=== PATIENT | female | born 1980 | race Caucasian/White ===

== ENCOUNTER 2021-12-07 18:17 | Inpatient (IN) | payer MEDICAID ==
[2021-12-07] MEDS ORDERED: HALOPERIDOL LACTATE 5 MG/ML 1 ML VIAL IM PRN (18:21)
[2021-12-07] MEDS ORDERED: FLUTICASONE 50MCG/SPRAY NASAL 16GM EA NOSTRIL PRN (18:21)
[2021-12-07] MEDS ORDERED: LORazepam 1 MG TAB PO PRN (18:21)
[2021-12-07] MEDS ORDERED: LORATADINE 10 MG TAB PO PRN (18:21)
[2021-12-07] MEDS ORDERED: haloperidoL 5 MG TAB PO PRN (18:21)
[2021-12-07] MEDS ORDERED: MAG HYDROX/AL HYDROX/SIMETH 30 ML CUP PO PRN (18:21)
[2021-12-07] MEDS ORDERED: IBUPROFEN 400 MG TAB PO PRN (18:21)
[2021-12-07] MEDS ORDERED: BENZOCAINE/MENTHOL LOZENG 1 EACH LOZENGE MUCOUS MEM PRN (18:21)
[2021-12-07] MEDS ORDERED: LORazepam 2 MG/ML INJ IM PRN (18:21)
[2021-12-07] MEDS ORDERED: MAGNESIUM HYDROXIDE 2,400 MG/10 ML CUP PO PRN (18:21)
[2021-12-08] MEDS: SYMBICORT 80-4.5 MCG INHALER INHALATION SCH ×4 (03:34→21:18)
[2021-12-08] MEDS: IPRATROPIUM-ALBUTEROL 3 ML NEB INHALATION PRN ×4 (03:40→16:33)
[2021-12-08] MEDS: MONTELUKAST 10 MG TAB PO SCH ×2 (03:44→21:19)
--- NOTE | 2021-12-08 10:15 | XR ---
EXAMINATION TYPE: XR chest 2V DATE OF EXAM: 12/08/2021 10:07 AM COMPARISON: None TECHNIQUE: XR chest 2V Frontal and lateral views of the chest. CLINICAL INDICATION:Female, 41 years old with history of difficulty Breathing'; FINDINGS: Lungs/Pleura: There is flattening of the diaphragm with increased lucency of the lungs. No evidence o f pneumothorax, pleural effusion or focal consolidation. Pulmonary vascularity: Unremarkable. Heart/mediastinum: Cardiomediastinal silhouette is unremarkable. Musculoskeletal: No acute osseous pathology. IMPRESSION: 1. No acute cardiopulmonary disease process. 2. Flattening of the diaphragm suggestive of COPD changes.
[2021-12-08] MEDS: PANTOPRAZOLE 40 MG TABLET PO SCH (11:22)
[2021-12-08] MEDS: LISINOPRIL-HCTZ 20-12.5 MG 1 EACH TAB PO SCH (11:22)
[2021-12-08] MEDS: ATORVASTATIN 20 MG TAB PO SCH (11:22)
[2021-12-08] MEDS: NICOTINE 14MG/24HR PATCH TRANSDERM SCH (11:30)
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
[2021-12-08] MEDS: LEVOTHYROXINE 100 MCG TAB PO SCH (16:11)
[2021-12-08] MEDS: GABAPENTIN 300 MG CAP PO SCH ×2 (16:12→21:20)
[2021-12-08] MEDS: buPROPion XL 150 MG TAB.ER.24H PO SCH (16:12)
[2021-12-08] MEDS: ESCITALOPRAM 10 MG TAB PO SCH (16:12)
[2021-12-08] MEDS: ACETAMINOPHEN TAB 325 MG TAB PO PRN (16:28)
[2021-12-08] MEDS: FAMOTIDINE 20 MG TAB PO SCH (21:19)
[2021-12-08] MEDS: PRAZOSIN 1 MG CAP PO SCH (21:19)
[2021-12-08] MEDS: CYCLOBENZAPRINE 10 MG TAB PO SCH (21:19)
[2021-12-08] MEDS ORDERED: ALBUTEROL HFA INHALER INHALATION PRN (22:51)
--- NOTE | 2021-12-08 23:12 | P.MDCNMH ---
History of Present Illness H&P Date: 12/08/21 Chief Complaint: medical evaluation 41 year old female with bipolar disorder, hypothyroid , hpyertension patient was admitted to the ICU at [facility], for Trazodone overdose, which was intentional suicidal attempt. patient was intubated on 12/04 and extubated 12/05 currently admitted to the mental health unit, she has concerns regarding a erythematus patch over her left forearm that she reports is painful and gets more pronounced when she keeps her arm down . this along couple areas of bruising around that erythematus patch, she reports that an IV was inserted around that area. she also reports swelling after an IV line insertion near her wrist over the right hand, which has now resolved otherwise denies any other active medical concerns, no fever, chills, chest pain or trouble breathing, no abd pain nausea or vomiting, denies hearing voices or hallucinations. she denies any active suicidal ideation at this time, but admits to three failed attempts in the past, all involved drug overdose. Review of Systems Pertinent positives as noted in HPI. All other systems were reviewed and are negative Past Medical History Past Medical History: Asthma, Cancer, Fibromyalgia Additional Past Medical History / Comment(s): Cervical, back and hip nerve pain. History of Any Multi-Drug Resistant Organisms: None Reported Past Surgical History: Tubal Ligation Additional Past Surgical History / Comment(s): Cancerous cells removed from cervix, 2011. Past Anesthesia/Blood Transfusion Reactions: No Reported Reaction Past Psychological History: Anxiety, Bipolar, Depression Smoking Status: Never smoker Past Alcohol Use History: Occasional Past Drug Use History: None Reported - Past Family History Mother Additional Family Medical History / Comment(s): MS, lung CA, hypothyroidism. Medications and Allergies Home Medications Medication Instructions Recorded Confirmed Type ARIPiprazole [Abilify] 2 mg PO DAILY 03/07/14 03/08/14 History DULoxetine HCL [Cymbalta] 60 mg PO DAILY 03/07/14 03/08/14 History Gabapentin [Neurontin] 300 mg PO TID 03/07/14 03/08/14 History Ibuprofen [Motrin] 800 mg PO Q8HR PRN 03/07/14 03/08/14 History Levothyroxine Sodium [Synthroid] 100 mcg PO DAILY 03/07/14 03/08/14 History Temazepam [Restoril] 30 mg PO HS PRN 03/07/14 03/07/14 History Buprenorphine HCl/Naloxone HCl 8 film PO BID PRN 03/08/14 03/08/14 History [Suboxone 8 mg-2 mg Sl Film] ARIPiprazole [Abilify] 5 mg PO DAILY 30 Days tab 03/15/14 Rx Atorvastatin Calcium [Lipitor] 40 mg PO DAILY 30 Days tablet 03/15/14 Rx Cyclobenzaprine [Flexeril] 10 mg PO HS 30 Days tab 03/15/14 Rx Escitalopram [Lexapro] 10 mg PO DAILY 30 Days tab 03/15/14 Rx Famotidine [Pepcid] 20 mg PO BID 30 Days tab 03/15/14 Rx Gabapentin [Neurontin] 600 mg PO TID 30 Days cap 03/15/14 Rx Mupirocin 2% Oint [Bactroban 2% 1 applic TOPICAL TID 14 Days 03/15/14 Rx Oint] applic calcium polycarbophiL [Fibercon] 625 mg PO BID 30 Days tablet 03/15/14 Rx hydrOXYzine HCL [Atarax] 50 mg PO TID 30 Days tab 03/15/14 Rx traZODone HCL [Desyrel] 100 mg PO HS PRN 30 Days tab 03/15/14 Rx Allergies Allergy/AdvReac Type Severity Reaction Status Date / Time Antihistamines - Alkylamine Allergy Unknown Verified 03/08/14 14:58 Penicillins Allergy Unknown Verified 03/08/14 14:58 Physical Exam Vitals: Vital Signs Temp Pulse Pulse Resp BP BP Pulse Ox 12/08/21 16:46 85 12/08/21 16:34 100 12/08/21 12:53 80 12/08/21 12:42 76 12/08/21 11:31 83 120/71 12/08/21 09:52 82 12/08/21 09:38 75 12/08/21 08:45 93 L 12/08/21 03:50 94 12/08/21 03:41 92 12/08/21 03:19 97.8 F 93 18 128/72 93 L Intake and Output 12/08/21 12/08/21 12/08/21 06:59 14:59 22:59 Other: Weight 74.134 kg Constitutional: No acute distress, conversant, pleasant Eyes: Anicteric sclerae, moist conjunctiva, Pupils equal round reactive to light ENMT: NC/AT Oropharynx clear, no erythema, or exudates Neck: Supple, no masses, or JVD No carotid bruits No thyromegaly Lungs: Clear to auscultation Clear to percussion Normal respiratory effort, no accessory muscle use Cardiovascular: Heart regular in rate and rhythm, No murmurs, gallops, or rubs No peripheral edema Abdominal: Soft Nontender, no guarding, rebound or rigidity Abdomen moving with respiration Normoactive bowel sounds No hepatomegaly, No splenomegaly No palpable mass No abdominal wall hernia noted Skin: erythematus patch over the ventral aspect of the left forearm measuring 5X5 tender to palpation , no induration , slightly warm to the touch , with couple areas of surrounding echymosis . otherwise, Normal temperature, tone, texture, turgor No induration No subcutaneous nodules No rash, lesions No ulcers Extremities: No digital cyanosis No clubbing Pedal pulses intact and symmetrical Radial pulses intact and symmetrical No calf tenderness Psychiatric: Alert and oriented to person, place and time Neuro Muscles Strength 5/5 in all 4 extremities Sensation to light touch grossly present throughout Cranial nerves II-XII grossly intact No focal sensory deficits Lymphatics: no palpable cervical or supraclavicular , or inguinal lymph nodes Cranial Nerve Examination - Cranial Nerves Cranial Nerve II- Optic: Intact Cranial Nerve III- Oculomotor: Intact Cranial Nerve IV- Trochlear: Intact Cranial Nerve V- Trigeminal: Intact Cranial Nerve - Abducens: Intact Cranial Nerve VII- Facial: Intact Cranial Nerve VIII- Auditory: Intact Cranial Nerve IX- Glossopharyngeal: Intact Cranial Nerve X- Vagus: Intact Cranial Nerve XI- Accessory: Intact Cranial Nerve XII- Hypoglossal: Intact Assessment and Plan Assessment: bipolar disorder suicidal attempt by drug over dose management per psych IV site extravasation over left forearm , no evidence of phlebitis elevation of the limb declined NSAIDS warm compress area was marked with pen , will follow up if it gets worse, chronic medical conditions Asthma , moderate persistent inhalers PRN as needed symbicort BID hypertension , resume home BP meds lisinopril , BP controlled hypothyroid, resume levothyroxine follow up morning labs Thank you for allowing us to participate in the care of this patient. We will follow peripherally. Do not hesitate to contact us with questions. Someone can be reached from the [facility] hospitalist group at all hours of the day at [phone].
[2021-12-09] MEDS: LEVOTHYROXINE 100 MCG TAB PO SCH (06:29)
[2021-12-09 08:43] LABS: Anisocytosis Slight; HCT 35.9 % (34.0-46.0); HGB 11.3 gm/dL (11.4-16.0); MCH 25.2 pg (25.0-35.0); MCHC 31.4 g/dL (31.0-37.0); MCV 80.3 fL (80.0-100.0); Mean Platelet Volume 7.6; Platelet Count 395 k/uL (150-450); RBC 4.47 m/uL (3.80-5.40); RDW 16.1 % (11.5-15.5); WBC 9.5 k/uL (3.8-10.6)
[2021-12-09 08:46] LABS: ALT 19 U/L (4-34); AST 29 U/L (14-36); African American GFR (CKD) >90 (>60 ml/min/1.73 sqM); Albumin 4.2 g/dL (3.5-5.0); Alkaline Phosphatase 73 U/L (38-126); Anion Gap 10 mmol/L; Blood Urea Nitrogen 10 mg/dL (7-17); Calcium 9.4 mg/dL (8.4-10.2); Carbon Dioxide 24 mmol/L (22-30); Chloride 100 mmol/L (98-107); Glucose 97 mg/dL (74-99); Non-African American GFR(CKD) 85 (>60 ml/min/1.73 sqM); Sodium 134 mmol/L (137-145); Total Bilirubin 0.4 mg/dL (0.2-1.3); Total Protein 7.2 g/dL (6.3-8.2)
[2021-12-09] MEDS: SYMBICORT 80-4.5 MCG INHALER INHALATION SCH ×2 (09:04→22:17)
[2021-12-09] MEDS: NICOTINE 14MG/24HR PATCH TRANSDERM SCH (09:05)
[2021-12-09] MEDS: ESCITALOPRAM 10 MG TAB PO SCH (09:07)
[2021-12-09] MEDS: FAMOTIDINE 20 MG TAB PO SCH ×2 (09:08→20:36)
[2021-12-09] MEDS: GABAPENTIN 300 MG CAP PO SCH ×3 (09:08→20:37)
[2021-12-09] MEDS: ATORVASTATIN 20 MG TAB PO SCH (09:08)
[2021-12-09] MEDS: buPROPion XL 150 MG TAB.ER.24H PO SCH (09:08)
[2021-12-09] MEDS: LISINOPRIL-HCTZ 20-12.5 MG 1 EACH TAB PO SCH (09:08)
[2021-12-09] MEDS: PANTOPRAZOLE 40 MG TABLET PO SCH (09:08)
[2021-12-09] MEDS: IPRATROPIUM-ALBUTEROL 3 ML NEB INHALATION PRN ×2 (15:45→21:31)
[2021-12-09] MEDS: CYCLOBENZAPRINE 10 MG TAB PO SCH (20:36)
[2021-12-09] MEDS: MONTELUKAST 10 MG TAB PO SCH (20:37)
[2021-12-09] MEDS: PRAZOSIN 1 MG CAP PO SCH (20:37)
--- NOTE | 2021-12-09 20:52 | P.PN ---
Progress Note - Text Progress Note Date: 12/09/21 Interval History: Patient was seen in her room and was agreeable to speak with mortgage underwriter. At this time patient denies any suicidal or homicidal ideations, intent or plan. Patient denies any auditory, visual hallucinations and denies any paranoia or delusions. Patient denies any side effects from the medications and has been compliant with meds. She denies nightmares last night, reports mood is better today, has talked to her . She asks about her Lyrica multiple times for her fibromyalgia. I reviewed her chart and she is getting gabapentin 600 mg TID as well as Flexeril 10 mg QHS. Mental Status Exam: General Appearance: Patient appears to be stated age, dress in casual attire, area of previous IV site marked in ink by medical doctor due to inflammation. Behavior: Patient is calm without any agitated behavior. Speech: Patient's speech is fluent and non-pressured. Mood/Affect: Mood is improving mildly, affect is congruent and constricted. Suicidality/Homicidality: Patient denies having any suicidal or homicidal ideation intent or plan. Perceptions: Patient denies any visual hallucinations and denies any auditory hallucinations. Though content/process: There is no evidence of any delusional thought content and thought process is linear and goal-directed. Memory and concentration: AOX3, grossly intact for the purposes of this session Judgment and insight: Improving mildly Assessment MDD, without psychotic features PTSD Overdose on medications Plan: -Patient continues to meet criteria for inpatient psychiatric admission for symptom stabilization and safety. -Medications: Continue Lexapro 10 mg daily for depression/anxiety. Continue Wellbutrin XL 150 mg daily for depression. Continue Prazosin 1 mg daily for nightmares. -When necessary Ativan and Haldol for agitation/aggression. Encouraged the patient to participate in milieu.
[2021-12-09 21:34] VITALS: RESP 18
[2021-12-10] MEDS: ACETAMINOPHEN TAB 325 MG TAB PO PRN (02:53)
[2021-12-10] MEDS: IPRATROPIUM-ALBUTEROL 3 ML NEB INHALATION PRN ×4 (07:31→19:28)
[2021-12-10] MEDS: ESCITALOPRAM 10 MG TAB PO SCH (08:04)
[2021-12-10] MEDS: buPROPion XL 150 MG TAB.ER.24H PO SCH (08:04)
[2021-12-10] MEDS: ATORVASTATIN 20 MG TAB PO SCH (08:04)
[2021-12-10] MEDS: GABAPENTIN 300 MG CAP PO SCH ×3 (08:04→20:32)
[2021-12-10] MEDS: LEVOTHYROXINE 100 MCG TAB PO SCH (08:04)
[2021-12-10] MEDS: FAMOTIDINE 20 MG TAB PO SCH ×2 (08:04→20:32)
[2021-12-10] MEDS: PANTOPRAZOLE 40 MG TABLET PO SCH (08:04)
[2021-12-10] MEDS: NICOTINE 14MG/24HR PATCH TRANSDERM SCH (08:05)
[2021-12-10] MEDS: SYMBICORT 80-4.5 MCG INHALER INHALATION SCH ×2 (08:05→21:02)
[2021-12-10] MEDS: LISINOPRIL-HCTZ 20-12.5 MG 1 EACH TAB PO SCH (08:54)
[2021-12-10 13:17] LABS: Chol/HDL Ratio 2.39 Ratio; LDL Cholesterol,Calculated 91.8 mg/dL (0.0-131.0); VLDL Calculation 17.08 mg/dL (5.00-40.00)
--- NOTE | 2021-12-10 14:11 | P.PN ---
Progress Note - Text Progress Note Date: 12/10/21 Interval History: Patient was seen in her room and was agreeable to speak with assembly instructions writer. She reports good mood, sleep and appetite. She denies nightmares last night. She reports she was switched to Gabapentin from Lyrica on the medical floor and does not find the gabapentin, would like to switch back to Lyrica, and will defer this to the primary team. At this time patient denies any suicidal or homicidal ideations, intent or plan. Patient denies any auditory, visual hallucinations and denies any paranoia or delusions. Patient denies any side effects from the medications and has been compliant with meds. Mental Status Exam: General Appearance: Patient appears to be stated age, dressed in casual attire, area of previous IV with inflammation and bruising that appears to be improving. . Behavior: Patient is calm without any agitated behavior. Speech: Patient's speech is fluent and non-pressured. Mood/Affect: Mood is "good", affect is congruent and constricted. Suicidality/Homicidality: Patient denies having any suicidal or homicidal ideation intent or plan. Perceptions: Patient denies any visual hallucinations and denies any auditory hallucinations. Though content/process: There is no evidence of any delusional thought content and thought process is linear and goal-directed. Memory and concentration: AOX3, grossly intact for the purposes of this session Judgment and insight: Improving mildly Assessment MDD, without psychotic features PTSD Overdose on medications Plan: -Patient continues to meet criteria for inpatient psychiatric admission for symptom stabilization and safety. -Medications: Continue Lexapro 10 mg daily for depression/anxiety. Continue Wellbutrin XL 150 mg daily for depression. Continue Prazosin 1 mg daily for nightmares. Defer decision to change Gabapentin back to Lyrica to primary team. -When necessary Ativan and Haldol for agitation/aggression. Encouraged the patient to participate in milieu.
[2021-12-10] MEDS: CYCLOBENZAPRINE 10 MG TAB PO SCH (20:32)
[2021-12-10] MEDS: MONTELUKAST 10 MG TAB PO SCH (20:32)
[2021-12-10] MEDS: PRAZOSIN 1 MG CAP PO SCH (20:32)
[2021-12-11] MEDS: LEVOTHYROXINE 100 MCG TAB PO SCH (06:11)
[2021-12-11 06:56] VITALS: TEMP 98.1
[2021-12-11] MEDS: IPRATROPIUM-ALBUTEROL 3 ML NEB INHALATION PRN ×3 (07:07→19:13)
[2021-12-11] MEDS: ATORVASTATIN 20 MG TAB PO SCH (08:38)
[2021-12-11] MEDS: PANTOPRAZOLE 40 MG TABLET PO SCH (08:38)
[2021-12-11] MEDS: ESCITALOPRAM 10 MG TAB PO SCH (08:39)
[2021-12-11] MEDS: FAMOTIDINE 20 MG TAB PO SCH ×2 (08:39→21:04)
[2021-12-11] MEDS: GABAPENTIN 300 MG CAP PO SCH ×3 (08:39→21:04)
[2021-12-11] MEDS: buPROPion XL 150 MG TAB.ER.24H PO SCH (08:39)
[2021-12-11] MEDS: NICOTINE 14MG/24HR PATCH TRANSDERM SCH (08:40)
[2021-12-11] MEDS: LISINOPRIL-HCTZ 20-12.5 MG 1 EACH TAB PO SCH (08:40)
[2021-12-11 08:42] VITALS: BP 112/69
[2021-12-11] MEDS: SYMBICORT 80-4.5 MCG INHALER INHALATION SCH ×2 (08:52→19:13)
[2021-12-11] MEDS: ACETAMINOPHEN TAB 325 MG TAB PO PRN (12:08)
--- NOTE | 2021-12-11 13:05 | P.PN ---
Progress Note - Text Progress Note Date: 12/11/21 Interval History: Patient was seen lying in her bed today and was directable and agreeable to cleo sheppard with typewriter repairer in the office. Patient claims that she feels upset that covid has been spreading and states that shes never been exposed before. She claims that her irritability and impulsivity and improving. She states that her mood and anxiety also been gradual improvement I'll however she states that she does feel anxious today. She claims she is looking forward to being discharged soon. She states that she has been participating in groups when she can. She claims that she has been showering and sleeping fairly except for last night where she was not able to sleep. She claims that she does not want any nighttime sleep medications. At this time patient denies any suicidal or homical ideations, intent or plan. Patient denies any auditory, visual hallucinations and denies any paranoia or delusions. Patient denies any side effects from the medications and has been compliant with meds. Mental Status Exam: General Appearance: Patient appears to be disheveled in appearance, stated age is alert, directable, and attempts to cooperate. Patient appears to have improving hygiene and grooming. Behavior: Patient is seated without any agitated behavior. Appears to be anxious, improving Speech: Patient's speech is fluent and nonpressured. Mood/Affect: Patient reports their mood is anxious, affect is congruent and constricted. Suicidality/Homicidality: Patient denies having any homicidal ideation intent or plan. Denies any suicidal ideations intent or plan Perceptions: Patient denies any visual hallucinations and denies any auditory hallucinations Though content/process: There is no evidence of any delusional thought content and thought process is linear and goal-directed. Memory and concentration: AOX3, grossly intact for the purposes of this session Judgment and insight: Improving mildly IMPRESSIONS: Major depressive disorder, without psychotic features PTSD Overdose on medications Plan: -Patient continues to meet criteria for inpatient psychiatric admission for symptom stabilization and safety. Patient has signed adult voluntary form and medication consent and was placed in patient's chart. -Medications: continue with Wellbutrin 150 mg daily for mood. Lexapro 10 mg daily for mood/anxiety. Prazosin 1 mg daily at bedtime for nightmares. -When necessary Ativan and Haldol for agitation/aggression. -NRT - not needed as patient does not smoke. -SW on board for discharge planning. Encouraged the patient to participate in milieu. Likely discharge tomorrow back home.
[2021-12-11] MEDS: PRAZOSIN 1 MG CAP PO SCH (21:04)
[2021-12-11] MEDS: CYCLOBENZAPRINE 10 MG TAB PO SCH (21:04)
[2021-12-11] MEDS: MONTELUKAST 10 MG TAB PO SCH (21:04)
[2021-12-12] MEDS: LEVOTHYROXINE 100 MCG TAB PO SCH (06:30)
[2021-12-12] MEDS: GABAPENTIN 300 MG CAP PO SCH (08:44)
[2021-12-12] MEDS: buPROPion XL 150 MG TAB.ER.24H PO SCH (08:44)
[2021-12-12] MEDS: ESCITALOPRAM 10 MG TAB PO SCH (08:45)
[2021-12-12] MEDS: FAMOTIDINE 20 MG TAB PO SCH (08:45)
[2021-12-12] MEDS: LISINOPRIL-HCTZ 20-12.5 MG 1 EACH TAB PO SCH (08:45)
[2021-12-12] MEDS: ATORVASTATIN 20 MG TAB PO SCH (08:45)
[2021-12-12] MEDS: PANTOPRAZOLE 40 MG TABLET PO SCH (08:45)
[2021-12-12] MEDS: SYMBICORT 80-4.5 MCG INHALER INHALATION SCH (08:47)
[2021-12-12] MEDS: IPRATROPIUM-ALBUTEROL 3 ML NEB INHALATION PRN (08:48)
[2021-12-12 09:02] VITALS: PULSE 91
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
[2021-12-12 11:37] LABS: Albumin 4.4 g/dL (3.5-5.0); Calcium 9.4 mg/dL (8.4-10.2); Potassium 4.2 mmol/L (3.5-5.1); Total Bilirubin 0.3 mg/dL (0.2-1.3); Total Protein 7.4 g/dL (6.3-8.2)
== END 2021-12-12 12:00 | disposition home or self-care (01) | DRG 881 ==
LOC: 3MHU 12-08 02:40
PROVIDERS: ADMIT Psychiatry & Neurology Psychiatry; ATTEND Psychiatry & Neurology Psychiatry
DX: F32.9 Major depressive disorder, single episode, unspecified (principal); R45.851 Suicidal ideations; F43.10 Post-traumatic stress disorder, unspecified; T43.212D Poisoning by selective serotonin and norepinephrine reuptake inhibitors, intentional self-harm, subsequent encounter; Z20.822 Contact with and (suspected) exposure to COVID-19; Z28.310 Unvaccinated for COVID-19; J45.909 Unspecified asthma, uncomplicated; I10 Essential (primary) hypertension; M79.7 Fibromyalgia; Z79.890 Hormone replacement therapy; Z79.891 Long term (current) use of opiate analgesic; Z79.899 Other long term (current) drug therapy; Z85.41 Personal history of malignant neoplasm of cervix uteri; Z62.819 Personal history of unspecified abuse in childhood; Z88.0 Allergy status to penicillin; Z88.8 Allergy status to other drugs, medicaments and biological substances; Z71.41 Alcohol abuse counseling and surveillance of alcoholic; Z71.51 Drug abuse counseling and surveillance of drug abuser; Z83.49 Family history of other endocrine, nutritional and metabolic diseases; Z80.1 Family history of malignant neoplasm of trachea, bronchus and lung; Z82.0 Family history of epilepsy and other diseases of the nervous system
CPT/HCPCS: 71046; 80053; 80061; 81025; 85027; 87635; 94640